=== PATIENT | female | born 1955 | race Caucasian/White ===

== ENCOUNTER → 2016-05-31 | Outpatient (CLI) | payer BC ==
[~2016-05-31] MED LIST: COREG PO; FLAX SEED OIL1000 MG PO; GLUCOPHAGE XR500 MG PO; MULTI-VIT/MIN P1 TAB PO; PRILOSEC PO; RESTASIS32 EA OP; ZOCOR PO
--- NOTE | ~2016-05-31 | MY6 ---
[facility] A Service of [facility] RADIOLOGY TEXT RESULTS PATIENT: OLEG MURPHY LOCATION: [facility] : 51 UNIT #: [id number] AGE: [address]: Umberto Alan MD SEX: F ORDER DR: [id number] [facility]. [place], [place] [address] [id number] O MR#: [id number] Acc #: [id number] NAME: OLEG MURPHY : 1955 SEX: F STUDY DATE/TIME: 05/31/2016 7:42 UNIT: [facility] ROOM: STUDY DESCRIPTION: MY Mammogram Dx Dig Abdelrahman Attending Physician: Umberto Alan M.D. Referring Physician: Umberto Alan M.D. Ordering Physician: Umberto Alan M.D. Primary Care Physician: Umberto Alan M.D. MEDICAL IMAGING REPORT This report is preliminary unless electronic signature is present EXAM Bilateral digital diagnostic mammogram with CAD, 05/31/2016 HISTORY 60-year-old female with personal history of right-sided breast cancer status post right lumpectomy. FINDINGS CC, MLO, and ML views of both breasts were obtained. The background breast parenchyma consists of scattered fibroglandular densities. No suspicious mass, microcalcification, or architectural distortion. There are a few benign-appearing calcifications in the breast tissue. The exam is compared to prior mammograms dated 05/30/2015 and 05/27/2014. IMPRESSION Benign mammogram. RECOMMENDATIONS Annual mammogram. Result of the study as well as recommendations were discussed directly with the patient at the time of her visit to the Department of Radiology. Patients over the age of 40 are entered into a reminder system with target due date for the next mammogram. A result letter will also be sent to the patient. BIRADS: 2 Benign Finding Dictated by... Jose Zambrano M.D. [facility] A Service [facility] RADIOLOGY TEXT RESULTS PATIENT: OLEG MURPHY LOCATION: [facility] : 51 UNIT #: [id number] AGE: [address]: Umberto Alan MD SEX: F ORDER DR: THIS IS AN ELECTRONICALLY VERIFIED REPORT Jose Zambrano M.D. at 05/31/2016 4:13 PM George TD: 05/31/2016 08:40 JOB #: [id number] MEDICAL IMAGING REPORT Page 1 of 1 COPY
== END | disposition home or self-care (01) ==
LOC: CWCC 07:17
DX: Z85.3 Personal history of malignant neoplasm of breast (principal)
CPT/HCPCS: G0204

== ENCOUNTER → 2016-09-04 | Outpatient (CLI) | payer BC ==
--- NOTE | ~2016-09-04 | TH ---
Unit #: [id number] #: [id number] Patient: OLEG MURPHY [id number] [address] [address] [id number] O MR#: [id number] NAME: OLEG MURPHY. : 1955 SEX: F STUDY DATE/TIME: 09/04/2016 UNIT: CN ROOM: STUDY DESCRIPTION: Attending Physician: Tiara Jefferson M.D. Referring Physician: Tiara Jefferson M.D. Primary Care Physician: Umberto Alan M.D. CARDIOLOGY REPORT EXAM Exercise Cardiolite stress test, nuclear portion. PROCEDURE Using technetium 99m labeled Cardiolite, rest and stress SPECT images were obtained. Multiple SPECT images were obtained in various views including horizontal and vertical long axis and short axis views of the left ventricle. Images were obtained by gated SPECT method. The patient was administered 9.56 mCi of Cardiolite at rest. The patient was administered 33 mCi of Cardiolite at peak exercise. Total exercise time is 6 minutes and 59 seconds. On the stress images, there is normal perfusion noted. The rest images show normal perfusion. Comparing rest and stress images, there is no stress-induced ischemia noted. The left ventricular ejection fraction is calculated to be 71%. There is no focal wall motion abnormality seen. CONCLUSION 1. No stress-induced ischemia noted. 2. The left ventricular ejection fraction is calculated to be 71%. 3. There is no focal wall motion abnormality seen. 4. The left ventricular size is small. 5. Normal exercise Cardiolite stress test. Dictated by... Garcia Melchor TD: 09/04/2016 15:24 JOB #: [id number] Unit #: [id number] #: [id number] Patient: OLGE MURPHY CARDIOLOGY REPORT Page 1 of 1 X Tiara Jefferson MD <ELECTRONICALLY SIGNED> 11/01/16 1524 CARDIOLOGY REPORT
--- NOTE | ~2016-09-04 | ST ---
Unit #: [id number] #: [id number] Patient: OLEG MURPHY [id number] [address] [address] [id number] O MR#: [id number] NAME: OLEG MURPHY. : 1955 SEX: F STUDY DATE/TIME: 09/04/2016 UNIT: [facility] ROOM: STUDY DESCRIPTION: exercuse cardiolite stress Attending Physician: Tiara Jefferson M.D. Referring Physician: Tiara Jefferson M.D. Primary Care Physician: Umberto Alan M.D. CARDIOLOGY REPORT EXAM This is an exercise Cardiolite stress test. DESCRIPTION Baseline EKG, normal sinus rhythm with ventricular rate 78 BPM, left atrial abnormality, questionable q wave in V1, slow R wave progression. Patient walked on the treadmill for 7 minutes, utilizing Boy protocol, achieving a workload of 7.0 METs. 88% of maximum target heart rate achieved at 135 BPM with a maximum blood pressure response of 180/82 mmHg. EKG during the test was equivocal to baseline. No acute ischemic changes. Patient had no complaints of chest pain, palpitations or dizziness. Had increased shortness of breath and fatigueness, which resolved during recovery phase. IMPRESSION 1. Functional class 3 with a workload of 7.0 METs. 2. Patient walked for 7 minutes, achieving 88% of maximum target heart rate at 139 BPM with a maximum blood pressure response of 180/82 mmHg. 3. EKG during the test was equivocal to baseline. No acute ischemic changes. 4. Patient had no complaints of chest pain, palpitations or dizziness and increases shortness of breath and fatigueness, which resolved during recovery phase. 5. It was noted patient will take her blood pressure medicine as soon as possible, which she did not take this morning. 6. Cardiolite was injected at maximum target heart rate. Radionuclide test pending. Please correlate with nuclear images. Dictated by... Olga Byrne A.P.R.N. for Garcia Melchor/hernán TD: 09/04/2016 11:16 JOB #: [id number] Unit #: [id number] #: [id number] Patient: OLEG MURPHY CARDIOLOGY REPORT Page 1 of 1 X Olga Byrne APRN CARDIOLOGY REPORT
== END | disposition home or self-care (01) ==
LOC: CNUC 07:58
DX: R07.9 Chest pain, unspecified (principal); E11.9 Type 2 diabetes mellitus without complications; R06.09 Other forms of dyspnea; I10 Essential (primary) hypertension
CPT/HCPCS: 78452; 93017; A9500